=== PATIENT | female | born 1970 | race African-American/Black ===

== ENCOUNTER 2024-08-28 16:00 | Emergency (ER) | payer MEDICAID ==
[~2024-08-28] VITALS: Ht 167.6 cm; Wt 64.0 kg
[2024-08-28 16:05] VITALS: O2SAT 97
[2024-08-28] MEDS ORDERED: HYDROCODONE/ACETAMINOPHEN 10/325MG TABLET PO ONE (17:15)
[2024-08-28] MEDS ORDERED: AMLODIPINE 10MG TABLET PO ONE (17:30)
[2024-08-28 17:39] LABS: BASOPHILS % 1.0 % (0.0-2.0); EOSINOPHILS % 1.4 % (0.0-5.0); HEMATOCRIT. 38.4 % (36.0-48.0); HEMOGLOBIN. 12.5 g/dL (12.0-16.0); LYMPHOCYTES % 27.1 % (20.0-50.0); MEAN PLATELET VOLUME 7.3 fl (7.4-10.4); MONOCYTES % 5.7 % (2.0-8.0); NEUTROPHILS % 64.8 % (40.0-76.0); PLATELET 323 x1000/uL (130-400); RED BLOOD CELL COUNT 4.44 mill/uL (4.2-5.4); RED CELL DISTRIBUTION WIDTH 15.6 % (11.6-14.6)
[2024-08-28 17:56] LABS: HCG SCREEN NEGATIVE
[2024-08-28 18:00] LABS: CREATININE 0.8 mg/dL (0.6-1.0); UREA NITROGEN BLOOD 9 mg/dL (9-23)
[2024-08-28] MEDS: HYDROCODONE/ACETAMINOPHEN 10/325MG TABLET PO SCH (18:07)
[2024-08-28] MEDS: LOSARTAN 50 MG TABLET PO ONE (18:07)
[2024-08-28] MEDS: AMLODIPINE 10MG TABLET PO SCH (18:07)
[2024-08-28] MEDS: ONDANSETRON HCL 4MG/2ML INJ IV ONE (18:15)
[2024-08-28] MEDS: MORPHINE SULFATE 2 MG/ML INJ (NOT FOR IM USE) IV ONE (18:19)
[2024-08-28 18:50] VITALS: BP 165/83; PULSE 81; RESP 20; TEMP 36.7; O2SAT 97
== END 2024-08-28 19:48 | disposition left against medical advice (07) ==
LOC: ER 16:00
DX: M79.18 Myalgia, other site (principal); C79.31 Secondary malignant neoplasm of brain; I10 Essential (primary) hypertension; R56.9 Unspecified convulsions
CPT/HCPCS: 80048; 82550; 84703; 85025; 36415; 96374; 96375; 99285; J2405; J2270; Z7610 ×2; A4606